=== PATIENT | female | born 1955 | race Caucasian/White ===

== ENCOUNTER → 2022-01-12 | Outpatient (CLI) | payer MEDICARE ==
[2014-06-23 21:13] VITALS: BP 139/58
[~2022-01-12] MED LIST: ASPI-482 PO; CARV6.2541 PO; CITA20TA6 PO; GARL10002 PO; LABE200T4; LISI1TAB39 PO; [UNRECOGNIZED DRUG - CODE] PO
--- NOTE | 2022-01-12 15:08 | RAD ---
CT HEAD/BRAIN WO Date: 01/12/2022 2:50 PM Clinical Indication: DIZZINESS, LT SIDED HEADACHE Comparison: 01/15/2014. Technique: 5 mm axial tomographic images were obtained of the head without contrast. These were view ed on brain and bone windows. One or more of the following dose reduction techniques were utilized: A utomated exposure control (AEC), Adjustment of mA and/or kV according to patient size, Use of iterati ve reconstruction technique such as ASiR, CT scan done according to ALARA and image gently/image barraza ly Findings: The brain parenchyma is normal in attenuation. No intra- or extra-axial mass or fluid collection. No acute hemorrhage. The ventricles are normal in size, shape, and morphology. The hawthorne-white matter tod ction is normal. The subarachnoid cisterns are patent. Mild frontal lobe predominant volume loss. The visualized paranasal sinuses are normal. The visualized portions of the orbits and globes are no rmal. The mastoid air cells are clear. The donor services manager topogram shows no lytic lesion or fracture. Impression: No acute intracranial process. Electronically signed by: Eric Oliva MD (01/12/2022 3:06 PM) [facility] MARIA
== END ==
LOC: CT 14:37
PROVIDERS: ATTEND Internal Medicine
DX: R51.9 Headache, unspecified (principal); R42 Dizziness and giddiness
CPT/HCPCS: 70450